=== PATIENT | male | born 1940 | race Caucasian/White ===

== ENCOUNTER 2018-08-06 14:05 | Emergency (ER) | payer MEDICARE, SELFPAY ==
[2018-08-06 15:03] VITALS: BP 107/63; PULSE 56; RESP 14; TEMP 36.8; O2SAT 96
--- NOTE | 2018-08-06 15:37 | DI.RAD_ITS ---
SYMPTOM/DIAGNOSIS: PAIN DUE TO TRAUMA RIGHT FOOT: Three views. No acute fracture or dislocation is seen. No radiopaque foreign bodies are seen in the soft tissues. IMPRESSION: No acute fracture or dislocation.
--- NOTE | 2018-08-06 16:09 | ED.GENADUL_ITS ---
Discharge Plan Disposition Patient Disposition: HOME Condition: Good Discharge Details Chief Complaint: Orthopedic Clinical Impression: Contusion of left foot including toes Primary Care Provider: FELICIA,LOCAL ED Provider: Joseph Proctor Home Meds and New Rx's Prescriptions: Continue aspirin [Aspir-Low] 81 mg Tablet,Delayed Release (Dr/Ec) 81 mg PO DAILY RF: 0 amlodipine 10 mg Tablet 10 mg PO DAILY RF: 0 atorvastatin 80 mg Tablet 80 mg PO DAILY RF: 0 fenofibrate micronized 134 mg Capsule 134 mg PO DAILY RF: 0 hydrochlorothiazide 25 mg Tablet 25 mg PO DAILY RF: 0 atenolol 100 mg Tablet 100 mg PO DAILY RF: 0 lisinopril 20 mg Tablet 20 mg PO DAILY RF: 0 Discharge Instructions Instructions: Foot Contusion (ED) Additional Instructions: Feel free to return to the emergency department for any new or worsening symptoms otherwise follow-up with your primary care provider if not improving over the next couple weeks. You may wear the postoperative shoe provided for the next week or as needed for discomfort. Referrals: Primary Care Provider [Outside] - 2 weeks (Follow-up with your local primary care provider as needed for reassessment if not improving over the next 2 weeks. ) Discharge Data Discharge Date/Time-TO BE ENTERED AT DEPARTURE: 08/06/18 16:53 Medical Decision Making MDM Narrative Medical decision making narrative: Patient reports 2 days ago he was walking on the stairs and significantly injured his plantar surface of his right foot around the second and third base of the toes. Patient does have significant tenderness to palpation of second third distal metatarsals. Given bony tenderness there is concern for fracture so radiological imaging of the foot was ordered. Patient denies any need for pain medication at this time After review of radiological imaging that shows no acute fracture patient was ordered a postoperative shoe and informed to follow-up with his primary care provider if not improving over the next couple weeks for diagnosis of foot contusion. Patient encouraged to continue to take [id number] pain medication as needed. HPI - General Adult General Date/Time Provider Initiated Documentation: 08/06/18 15:12 . Limitations to Documentation: no limitations . Information obtained by: patient . History of Present Illness 78 year old M presents to the emergency department with the chief complaint of left foot pain , described as moderate, with intensity rated at 6. Quality is described as aching, and is localized to the right and lower extremity. Patient reports no radiation. Patient started experiencing this day(s) (2) and it has been constant. No relieving factors improve symptom(s) , No exacerbating factors reported . Patient notes no other symptoms.. Related Data Home Medications Medication Instructions Recorded Confirmed amlodipine 10 mg PO DAILY 08/06/18 08/06/18 aspirin [Aspir-Low] 81 mg PO DAILY 08/06/18 08/06/18 atenolol 100 mg PO DAILY 08/06/18 08/06/18 atorvastatin 80 mg PO DAILY 08/06/18 08/06/18 fenofibrate micronized 134 mg PO DAILY 08/06/18 08/06/18 hydrochlorothiazide 25 mg PO DAILY 08/06/18 08/06/18 lisinopril 20 mg PO DAILY 08/06/18 08/06/18 Allergies Allergy/AdvReac Type Severity Reaction Status Date / Time No Known Allergies Allergy Unverified 08/06/18 15:08 General Stated Complaint: Orthopedic IGNACIO: 4 Review of Systems Constitutional Denies body ache(s), Denies chills and Denies fever(s) Cardiovascular Denies chest pain and Denies dyspnea Respiratory Denies dyspnea Gastrointestinal Denies abdominal pain, Denies nausea and Denies vomiting Musculoskeletal Reports as per HPI Integumentary/Breasts Denies rash Neurologic Denies confusion and Denies sensory deficit Psychiatric Denies confusion PFSH Social History Smoking/Tobacco Use Status: Former Tobacco Use Exam Const General: cooperative, no acute distress and not ill appearing Orientation: alert, awake and oriented x3 HENMT Mouth: moist mucous membranes Resp Effort & Inspection: normal respiratory effort, able to speak in complete sentences and no respiratory distress Cardio Rate: regular rate Rhythm: regular rhythm Skin General skin exam: no rashes or lesions noted Neuro General: alert, awake, oriented x3, moves all extremities and no focal motor deficits Sensory Exam: no sensory deficits noted Extrem Left lower extremity: foot Details: tenderness Location: of the plantar foot Location: distally; not of the calcaneus, toes with normal ROM, no edema and motor-sensory exam Details: two point discrimination normal and light-touch normal; no unusual warmth and no ecchymosis Ankle/foot/toe images: 2 1. area of pain Course Vital Signs Temperature 36.8 C 08/06/18 15:03 Pulse 56 L 08/06/18 15:03 Respiratory Rate 14 08/06/18 15:03 Blood Pressure 107/63 08/06/18 15:03 Pulse Oximetry 96 08/06/18 15:03 Temperature 36.8 C 08/06/18 15:03 Pulse 56 L 08/06/18 15:03 Respiratory Rate 14 08/06/18 15:03 Blood Pressure 107/63 08/06/18 15:03 Pulse Oximetry 96 08/06/18 15:03
--- NOTE | 2018-08-06 16:12 | DI.VRAD_ITS ---
EXAM: XR Right Foot Complete, 3 or more Views EXAM DATE/TIME: 08/06/2018 3:59 PM CLINICAL HISTORY: 78 years old, male; Pain; Foot; Right TECHNIQUE: XR Right foot 3 or more views. COMPARISON: No relevant prior studies available. FINDINGS: Bones/joints: Small calcaneal spur. No fracture. There appears to be non-alignment of the ankle joint which may be positional. Soft tissues: Normal. IMPRESSION: No acute fracture. There appears to be nonalignment of the ankle joint, which may be positional. If there is clinical concern for ankle dislocation ankle radiographs can be obtained. Dictated and Authenticated by: Marcelino Webber MD. Ordering:CINTHIA LAMBERT MD
== END 2018-08-06 16:53 | disposition home or self-care (01) ==
PROVIDERS: Emergency Provider Nurse Practitioner Family
DX: S90.32XA Contusion of left foot, initial encounter (principal); W22.8XXA Striking against or struck by other objects, initial encounter
CPT/HCPCS: 29515; 99283; 73630; 99282

== ENCOUNTER 2022-04-05 21:28 | Emergency (ER) | payer MEDICARE, SELFPAY ==
[2022-04-05 21:35] VITALS: BP 161/80; PULSE 68; RESP 18; TEMP 36.5; O2SAT 98
--- NOTE | 2022-04-05 22:48 | ED.GENADUL_ITS ---
Discharge Plan Disposition Patient Disposition: HOME Condition: Stable Discharge Details Clinical Impression: Epistaxis Primary Care Provider: Lis,Local ED Provider: Isa Zhang Home Meds and New Rx's Prescriptions: No Action aspirin [Aspir-Low] 81 mg Tablet,Delayed Release (Dr/Ec) 81 mg PO DAILY amlodipine 10 mg Tablet 10 mg PO DAILY atorvastatin 80 mg Tablet 80 mg PO DAILY fenofibrate micronized 134 mg Capsule 134 mg PO DAILY hydrochlorothiazide 25 mg Tablet 25 mg PO DAILY atenolol 100 mg Tablet 100 mg PO DAILY lisinopril 20 mg Tablet 20 mg PO DAILY Discharge Instructions Instructions: Nosebleed (ED) Additional Instructions: Use the Afrin nasal spray 1-2 sprays to the affected nostril if bleeding reocc urs. Carefully take the cottonball out of your nose when he gets home. Do not blow your nose or pick your nose in the next 12 to 24 hours if possible. Drinking hot liquids or soup or cold liquids beneath her nose start bleeding again. If bleeding reoccurs apply pressure for approximately 15 minutes if unable to get bleeding to stop please return to the ER. Follow up with primary care provider in 3-5 days. Return to ED sooner if any worsening or concerns. Increase oral fluids. If recurrent nosebleeds follow up with ENT. Referrals: Joni Hollis MD [ [facility] STAFF PHYSICIAN] - 1 week Discharge Data Discharge Date/Time-TO BE ENTERED AT DEPARTURE: 04/06/22 00:18 Medical Decision Making 81-year-old male presents to the ER chief complaint of epistaxis from left nare which began approximately 2 days ago he reports that he may have picked his nose he was able to get it to stop couple days ago. Today he has increased work exertion and heavy lifting began around noon per his 's report. He has been applying pressure. He does have some active bleeding noted there. Unable to visualize the exact spot of the bleeding. He denies any headache, pain no dizziness or lightheadedness no chest pain. He does take a baby aspirin every day. He does have a history of high blood pressure and high cholesterol. 2300: Patient has piece of tissue inserted into left nostril and nasal clamp upon initial examination. Kleenex was removed patient blew his nose which showed some mild bright red blood. No clots noted. Afrin spray was applied. Bleeding is controlled at this time. Will administer TXA cottonball and observe. Unable to visualize bleeding vessel at this time. He does have a swollen boggy nasal turbinate to the left nasal canal. 2331: TXA soaked cotton ball placed into left nare with nasal clamp. Patient instructed to keep in nose for approximately 15-20 minutes. 1205: Patient reevaluation bleeding has stopped at this time. An additional TXA cotton ball given to patient with instructions to remove when arriving home. Discussed home care and currently they are with bacitracin to keep moist. Discussed return instructions patient is verbalized understanding. Blood pressure is 172/97. HPI General Mode of arrival: ambulatory . Date/Time Provider Initiated Documentation: 04/05/22 21:32 . Limitations to Documentation: no limitations . Information obtained by: patient, RN notes reviewed and old records reviewed . HPI Narrative: 81-year-old male presents to the ER chief complaint of epistaxis from left nare which began approximately 2 days ago he reports that he may have picked his nose he was able to get it to stop couple days ago. Today he has increased work exertion and heavy lifting began around noon per his 's report. He has been applying pressure. He does have some active bleeding noted there. Unable to visualize the exact spot of the bleeding. He denies any headache, pain no dizziness or lightheadedness no chest pain. He does take a baby aspirin every day. He does have a history of high blood pressure and high cholesterol. Related Data Home Medications Medication Instructions Recorded Confirmed amlodipine 10 mg tablet 10 mg PO DAILY 08/06/18 08/06/18 aspirin 81 mg tablet,delayed 81 mg PO DAILY 08/06/18 08/06/18 release (Aspir-Low) atenolol 100 mg tablet 100 mg PO DAILY 08/06/18 08/06/18 atorvastatin 80 mg tablet 80 mg PO DAILY 08/06/18 08/06/18 fenofibrate micronized 134 mg 134 mg PO DAILY 08/06/18 08/06/18 capsule hydrochlorothiazide 25 mg tablet 25 mg PO DAILY 08/06/18 08/06/18 lisinopril 20 mg tablet 20 mg PO DAILY 08/06/18 08/06/18 Allergies Allergy/AdvReac Type Severity Reaction Status Date / Time No Known Allergies Allergy Unverified 08/06/18 15:08 General Stated Complaint: Epistaxis IGNACIO: 4 Review of Systems All systems reviewed & are unremarkable except as noted in HPI and below Constitutional Constitutional: Denies excessive sweating, Denies fever(s), Denies frequent falls, Denies headache(s) and Denies weakness ENT Ears, Nose, Mouth, and Throat: Reports as per HPI, Denies dizziness, Denies headache(s) and Reports epistaxis Cardiovascular Cardiovascular: Denies chest pain, Denies syncope and Denies dyspnea Respiratory Respiratory: Denies dyspnea Gastrointestinal Gastrointestinal: Denies nausea and Denies vomiting Neurologic Neurologic: Denies dizziness, Denies syncope, Denies frequent falls, Denies headache(s) and Denies weakness Endocrine Endocrine: Denies excessive sweating PFSH All Active Problems (Updated 04/06/22 @ 00:08 by Isa Zhang) Epistaxis (Acute) Social History Smoking/Tobacco Use Status: Former Tobacco Use Smoking risk assessment performed?: Yes Alcohol Intake: current Alcohol Intake frequency: a few times a week Alcohol type: beer Drug use: Never Substance use type: does not use Do you feel safe in your relationship?: Yes Exam Const General: cooperative, comfortable, well developed and well groomed Nutritional Appearance: average body habitus and well nourished Orientation: alert, awake and oriented x3 HENMT Head: normal to inspection and normocephalic General nose exam: nares normal, epistaxis on the left source not visualized and mucous membranes and turbinates abnormal boggy on the left and erythematous on the left Course Vital Signs Vital signs: Vital Signs Temperature 36.5 C 04/05/22 21:35 Pulse 68 04/05/22 21:35 Respiratory Rate 18 04/05/22 21:35 Blood Pressure 161/80 H 04/05/22 21:35 Pulse Oximetry 98 04/05/22 21:35 Temperature 36.5 C 04/05/22 21:35 Temperature Source Tympanic 04/05/22 21:35 Pulse 68 04/05/22 21:35 Respiratory Rate 18 04/05/22 21:35 Respiratory Effort 04/05/22 21:38 Blood Pressure 161/80 H 04/05/22 21:35 Blood Pressure Position Supine 04/05/22 21:35 Pulse Oximetry 98 04/05/22 21:35 Oxygen Delivery Method Room Air 04/05/22 21:35 Oxygen Flow Rate 0 04/05/22 21:35 Pain Level 0 04/05/22 21:35
[2022-04-05] MEDS: Oxymetazolone 0.05% SPRAY 15 ML BTL NS (23:27)
[2022-04-05] MEDS: Tranexamic Acid 1,000 MG/10 ML VIAL 500 MG NS (23:27)
== END 2022-04-06 00:18 | disposition home or self-care (01) ==
PROVIDERS: Emergency Provider Registered Nurse Emergency
DX: R04.0 Epistaxis (principal)
CPT/HCPCS: 30901

== ENCOUNTER 2022-05-13 00:29 | Outpatient (CLI) | payer MEDICARE, SELFPAY ==
--- NOTE | 2022-05-13 | DI.CT_ITS ---
Exam(s) CT ABDOMEN WO EXAM: CT ABDOMEN WO CLINICAL HISTORY: LESION OF LIVER, K76.9 TECHNIQUE: COMPARISON: CT CT ABDOMEN W CONTRAST from 10/02/2021 FINDINGS: Noninfused CT scan the abdomen only was performed. Pelvis was not scanned oral contrast was administ ered for bowel opacification. Compared to prior outside contrast infused CT scan from [facility] in [place]. Prior study was 10/02/2021 Visualized lung bases exhibit significant improvement with absence of the previously present right pl eural effusion and re-expansion of the right lower lobe. Mild benign-appearing increased markings ar e noted in the right lung base but no ominous nodules in either visualized lung base. There is no ascites in the upper abdomen. Multiple small hypodensities in the liver are again noted which have benign appearances, most probabl y cysts or small hemangiomas. The pigtail drainage catheter has been removed and the previously pres ent fluid collection is resolved. The gallbladder is again noted be surgically absent. CBD is not dilated. Pancreas appears unremarka ble. No lesions. Pancreatic duct is not dilated. Spleen size is normal. No significant adrenal ma sses. No significant focal findings in the left kidney. Small exophytic cyst off the medial cortex of the right kidney is again noted. No solid renal masses. No calculi. No hydronephrosis. Abdomin al aorta is not enlarged. There is no [id number] adenopathy. No adenopathy around the aortic bifurcation which is lower field of view of this study. No evidence of bowel obstruction. No evidence of anterior abdominal hernia. Osseous: No significant osseous lesions. Some height loss of the superior endplate of L2 is unchange d. No new fractures. IMPRESSION: 1. Previously present pigtail drainage catheter is been removed. The liver abscess has resolved. Sm all benign-appearing hypodensities in the liver are again noted and remain stable and are probably be nign cysts or hemangiomas or a combination there of. 2. Previously present right-sided pleural effusion has resolved. There presently no pleural effusion s in the visualized lung bases. 3. Gallbladder is again noted be surgically absent. Biliary tree is not dilated. 4. Other findings as above
[2022-05-13] MEDS: Barium Sulfate 2% W/V-Berry Smoothie 450 ML BTL PO (09:04)
== END 2022-05-13 00:49 ==
PROVIDERS: Visit Provider Physician Assistant Medical
DX: K76.89 Other specified diseases of liver (principal); N28.1 Cyst of kidney, acquired; Z90.49 Acquired absence of other specified parts of digestive tract
CPT/HCPCS: 74150